=== PATIENT | male | born 1995 | race Two or more races ===

== ENCOUNTER 2016-10-03 17:36 | Emergency (ER) | payer OTHER ==
[~2016-10-03] VITALS: Ht 177.8 cm; Wt 63.5 kg
[2016-10-03 17:41] VITALS: BP 122/66
[2016-10-03] MEDS ORDERED: PROAIR HFA8.5 GM INH (17:41)
--- NOTE | 2016-10-03 17:57 | PHYS DOC ---
Past Medical History Past Medical History: Asthma Past Surgical History: No Surgical History Alcohol Use: None Drug Use: None Adult General Chief Complaint Chief Complaint: COUGH HPI HPI Patient is a 20 year old male, with a history of asthma, presents emergency Department today with complaint of approximately one week of difficulty breathing. He states he's been using his inhaler and is been losing its effectiveness over the past couple of days. He denies taking any allergy medication. He states that he was diagnosed with asthma as a young child back in [facility]. He states that he had been hospitalized once in the past for his asthma. He denies any previous intubations. Patient states he's a nonsmoker. He denies antibiotic or steroid use within the past 90 days. He currently does not have a primary care doctor. He denies fevers or chills, myalgias or arthralgias. Review of Systems Review of Systems Constitutional: Denies fever or chills [] Eyes: Denies change in visual acuity, redness, or eye pain [] HENT: Denies nasal congestion or sore throat [] Respiratory: Denies cough or shortness of breath [] Cardiovascular: No additional information not addressed in HPI [] GI: Denies abdominal pain, nausea, vomiting, bloody stools or diarrhea [] : Denies dysuria or hematuria [] Musculoskeletal: Denies back pain or joint pain [] Integument: Denies rash or skin lesions [] Neurologic: Denies headache, focal weakness or sensory changes [] Endocrine: Denies polyuria or polydipsia [] Current Medications Current Medications Current Medications Medications (Trade) Dose Ordered Sig/Phuong Start Time Stop Time Status Last Admin Dose Admin Albuterol/ Ipratropium (Duoneb) 3 ml 1X ONCE 10/03/16 18:15 10/03/16 18:16 DC 10/03/16 18:16 3 ML Prednisone (Prednisone) 50 mg 1X ONCE 10/03/16 18:15 10/03/16 18:16 DC 10/03/16 18:09 50 MG Allergies Allergies Allergies Coded Allergies Type Severity Reaction Last Updated Verified No Known Drug Allergies 10/03/16 No Physical Exam Physical Exam Constitutional: Well developed, well nourished, no acute distress, non-toxic appearance. Patient is sitting upright in speaking in full sentences. HENT: Normocephalic, atraumatic, bilateral external ears normal, oropharynx moist, no oral exudates, nose normal. [] Eyes: PERRLA, EOMI, conjunctiva normal, no discharge. [] Neck: Normal range of motion, no tenderness, supple, no stridor. [] Cardiovascular:Heart rate regular rhythm, no murmur Lungs & Thorax: There is no posturing or sensory muscle use. Patient is able to speak in full sentences. Patient does have coarse, bilateral wheezing in all lung krueger. He demonstrates no respiratory distress or respiratory fatigue at this time. Abdomen: Bowel sounds normal, soft, no tenderness, no masses, no pulsatile masses. [] Skin: Warm, dry, no erythema, no rash. [] Back: No tenderness, no CVA tenderness. [] Extremities: No tenderness, no cyanosis, no clubbing, ROM intact, no edema. [] Neurologic: Alert and oriented X 3, normal motor function, normal sensory function, no focal deficits noted. [] Psychologic: Affect normal, judgement normal, mood normal. [] Current Patient Data Vital Signs Vital Signs Date Time Temp Pulse Resp B/P Pulse Ox O2 Delivery O2 Flow Rate FiO2 10/03/16 18:17 98 Room Air 10/03/16 17:41 97.5 85 24 97.5 EKG EKG [] Radiology/Procedures Radiology/Procedures [] Course & Med Decision Making Course & Med Decision Making Patient received DuoNeb here in the ED. His wheezing diminished considerably and reported breathing much better after. Dragon Disclaimer Dragon Disclaimer This electronic medical record was generated, in whole or in part, using a voice recognition dictation system. Departure Departure Impression: Primary Impression: Asthma Disposition: 01 HOME, SELF-CARE Condition: IMPROVED Patient Instructions: Allergic Rhinitis, Asthma Prevention-Brief, Asthma, Adult , [id number] Additional Instructions: 1. Take the medication as prescribed. 2. Review the discharge instructions provided for self-care and reasons to return to the emergency department. 3. You need a primary care doctor to address your medical concerns. Use the pamphlet provided for assistance in finding one. You need to call in the morning to find a primary care doctor to follow up with within the next 3-5 days. Scripts Fluticasone Propionate (Flonase Allergy Relief)9.9 Ml Latta.susp2 Sprays NS DAILY allergies #1 BOTTLE Ref 2 Prov:BRYAN GARCIA 10/03/16 Cetirizine Hcl (Zyrtec)10 Mg Tablet1 Tab PO DAILY allergies #30 TAB Ref 2 Prov:BRYAN GARCIA 10/03/16 Benzonatate 200 Mg Capsule1 Cap PO TID COUGH #21 CAP Prov:BRYAN GARCIA 10/03/16 Prednisone 50 Mg Tablet1 Tab PO DAILY #5 TAB Prov:BRYAN GARCIA 10/03/16 Albuterol Sulfate (Proventil Hfa Inhaler)6.7 Gm Hfa.aer.ad2 Puff IH Q6HRS PRN wheezing and shortness of talon #1 INHALER Ref 1 Prov:BRYAN GARCIA 10/03/16 Problem Qualifiers Primary Impression: Asthma Asthma severity: unspecified severity Asthma complication type: uncomplicated Qualified Code: J45.909 - Unspecified asthma, uncomplicated BRYAN GARCIA Oct 03, 2016 17:57
[2016-10-03] MEDS ORDERED: PREDNISONE 10 MG TABLET PO ONE (18:15)
[2016-10-03] MEDS ORDERED: IPRATRPIUM/ALBUTEROL 0.5/2.5MG 3 ML NEBU. NEB ONE (18:15)
[2016-10-03] MEDS ORDERED: PROVENTIL HFA6.7 GM IH (18:28)
[2016-10-03] MEDS ORDERED: FLUT9.9S NS (18:28)
[2016-10-03] MEDS ORDERED: CETI10TA22 PO (18:28)
[2016-10-03] MEDS ORDERED: PRED50TA PO (18:28)
[2016-10-03] MEDS ORDERED: BENZ200C39 PO (18:28)
== END 2016-10-03 18:38 | disposition home or self-care (01) ==
LOC: ER 17:36
DX: J45.909 Unspecified asthma, uncomplicated (principal)
CPT/HCPCS: 94250; 94640; 99283; J7512; J7620